=== PATIENT | female | born 1975 | race Caucasian/White ===

== ENCOUNTER 2017-03-31 09:41 | Inpatient (IN) | payer OTHER ==
[2017-03-30 10:37] LABS: BASOPHILS % 0.4 % (0.0-2.0); HEMATOCRIT 38.6 % (37.0-47.0); HEMOGLOBIN 12.5 g/dl (12.0-16.0); LYMPHOCYTES # 2.3 10^3/ul (0.8-2.9); MEAN CORPUSCULAR HEMOGLOBIN 28.3 pg (29.0-33.0); MEAN CORPUSCULAR HGB CONC 32.4 g/dl (32.0-37.0); MEAN CORPUSCULAR VOLUME 87.5 fl (82.0-101.0); MEAN PLATELET VOLUME 8.7 fl (7.4-10.4); MONOCYTE # 0.3 10^3/ul (0.3-0.9); MONOCYTES % 5.9 % (0.0-11.0); NEUTROPHIL # 2.8 10^3/ul (1.6-7.5); NEUTROPHILS % 50.5 % (39.0-77.0); PLATELET COUNT 254 10^3/UL (140-415); RED BLOOD COUNT 4.41 10^6/ul (4.20-5.40); RED CELL DISTRIBUTION WIDTH 14.2 % (11.5-14.5); WHITE BLOOD COUNT 5.4 10^3/ul (4.8-10.8)
[2017-03-30 10:49] LABS: ADD UMIC YES; UR ASCORBIC ACID NEGATIVE (NEGATIVE); UR BACTERIA FEW /HPF (NONE SEEN); UR BILIRUBIN (Dip) NEGATIVE (NEGATIVE); UR BLOOD (Dip) 1+ mg/dL (NEGATIVE); UR CLARITY CLEAR (CLEAR); UR COLOR STRAW (YELLOW); UR GLUCOSE (Dip) NEGATIVE (NEGATIVE); UR KETONES (Dip) NEGATIVE (NEGATIVE); UR LEUKOCYTE ESTERASE (Dip) 1+ Leu/ul (NEGATIVE); UR NITRITE (Dip) NEGATIVE (NEGATIVE); UR RBC 2 /HPF (0-5); UR SPECIFIC GRAVITY (Dip) 1.003 (1.003-1.030); UR TOTAL PROTEIN (Dip) NEGATIVE (NEGATIVE); UR UROBILINOGEN (Dip) NEGATIVE (NEGATIVE)
[2017-03-30 10:59] LABS: INR 1.11; PROTIME 14.3 Sec (12.2-14.2); PT RATIO 1.1
[2017-03-30 11:00] LABS: PARTIAL THROMBOPLASTIN TIME 33.1 Sec (25.0-35.0)
[2017-03-30 11:02] LABS: ALBUMIN 4.1 g/dl (3.3-4.9); ALBUMIN/GLOBULIN RATIO 1.02; BILIRUBIN,INDIRECT 0.2 mg/dl (0-1.1); BILIRUBIN,TOTAL 0.2 mg/dl (0.2-1.3); CALCIUM 9.4 mg/dl (8.4-10.2); CREATININE 0.87 mg/dl (0.44-1.00); POTASSIUM 4.1 mmol/L (3.5-5.1); TOTAL PROTEIN 8.1 g/dl (6.1-8.1)
[2017-03-30 12:13] LABS: CANCER ANTIGEN 125 52.4 U/ml (0.0-35.0)
[2017-03-31] VITALS (20 sets, daily range): BP systolic 122–147; BP diastolic 62–93; PULSE 60–82; RESP 15–20; Ht 157.5 cm; Wt 70.1 kg
[~2017-03-31] VITALS: Ht 157.5 cm; Wt 70.1 kg
[~2017-03-31 09:41] MED LIST: CEFAZOLIN 1 GM INJ ONE; metroNIDAZOLE 500 MG/100 ML NS IVPB ONE
[2017-03-31] MEDS ORDERED: OLAN10TA7 PO (10:42)
[2017-03-31] MEDS ORDERED: MIDAZOLAM 1 MG/ML 2 ML INJ ONE (12:28)
[2017-03-31] MEDS ORDERED: morphine SULFATE/PF (10 MG/10 ML) INJ ONE (12:31)
[2017-03-31] MEDS ORDERED: PROPOFOL 20 ML ONE (13:38)
[2017-03-31] MEDS ORDERED: ROCURONIUM 50 MG INJ ONE ×2 (13:38→13:48)
[2017-03-31] MEDS ORDERED: SUCCINYLCHOLINE CHLORIDE 100 MG/5 ML SYG IV ONE (13:38)
[2017-03-31] MEDS ORDERED: LIDOCAINE 2% (SDV) 5 ML INJ ONE (13:38)
[2017-03-31] MEDS ORDERED: ONDANSETRON 4 MG INJ ONE (13:50)
[2017-03-31] MEDS ORDERED: FAMOTIDINE 20 MG INJ ONE (13:50)
[2017-03-31] MEDS ORDERED: DEXAMETHASONE 4 MG/ML 1 ML INJ ONE (13:50)
[2017-03-31] MEDS ORDERED: THROMBIN 5000 UNIT VIAL ONE (13:59)
[2017-03-31] MEDS ORDERED: METHYLENE BLUE 1% 10 ML INJ ONE (14:04)
[2017-03-31] MEDS ORDERED: VASOPRESSIN 20 UNITS INJ ONE (14:12)
[2017-03-31] MEDS ORDERED: SUGAMMADEX SODIUM 200 MG/2 ML VIAL IV ONE ×2 (16:25)
[2017-03-31] MEDS ORDERED: HYDROmorphONE (0.2 MG/ML) 10ML SYG IV PRN (17:00)
[2017-03-31] MEDS ORDERED: HYDROmorphONE 0.5 MG/0.5 ML SYG IV PRN ×2 (17:00)
[2017-03-31] MEDS ORDERED: NALOXONE (0.4 MG/ML) INJ IV PRN (17:00)
[2017-03-31] MEDS ORDERED: ONDANSETRON 4 MG INJ IV PRN ×3 (17:00→17:30)
[2017-03-31] MEDS ORDERED: PROCHLORPERAZINE 10 MG INJ IV PRN (17:00)
[2017-03-31] MEDS ORDERED: MEPERIDINE 25 MG INJ IV PRN (17:00)
[2017-03-31] MEDS ORDERED: NALBUPHINE HCL (10 MG/1 ML) INJ IV PRN (17:00)
[2017-03-31] MEDS ORDERED: FENTAnyl 50 MCG/ML VIAL IV PRN (17:00)
[2017-03-31] MEDS ORDERED: DIPHENHYDRAMINE 50 MG INJ IV PRN ×3 (17:00→17:30)
--- NOTE | 2017-03-31 17:15 | HPN ---
Date/Time of Note Date/Time of Note DATE: 03/31/17 TIME: 17:15 Interval H&P Admission Note Pt. seen H&P reviewed: No system changes FLAKO CHOW MD Mar 31, 2017 17:15
--- NOTE | 2017-03-31 17:18 | SIPON ---
Date/Time of Note Date/Time of Note DATE: 03/31/17 TIME: 17:15 Operative Report Preoperative Diagnosis pain and menorrhagia Postoperative Diagnosis severe endometriosis, ureteral stricture, fibroids, adhesions Operation/Procedure Performed LSG/BSO/UD x 2, enterolysis Surgeon see signature line veterinary assistant technician see dict Anesthesia: other Estimated blood loss: 50 - 100 ml's Transfusion Required none Specimen multiple Grafts/Implants none Complications none FLAKO CHOW MD Mar 31, 2017 17:18
[2017-03-31] MEDS ORDERED: METOCLOPRAMIDE 10 MG INJ IV PRN (17:30)
[2017-03-31] MEDS ORDERED: morphine 2 MG INJ IV PRN (17:30)
[2017-03-31] MEDS ORDERED: metroNIDAZOLE 500 MG/NS (PMX) 100 ML IVPB SCH (17:30)
[2017-03-31] MEDS ORDERED: CEFAZOLIN 1 GM in SOD CHLORIDE 0.9% 100 ML IVPB SCH (17:30)
[2017-03-31 17:58] LABS: BASOPHILS % 0.1 % (0.0-2.0); HEMOGLOBIN 12.3 g/dl (12.0-16.0); LYMPHOCYTES # 1.1 10^3/ul (0.8-2.9); LYMPHOCYTES % 8.5 % (15.0-51.0); MEAN CORPUSCULAR HEMOGLOBIN 28.7 pg (29.0-33.0); MEAN CORPUSCULAR HGB CONC 32.4 g/dl (32.0-37.0); MEAN CORPUSCULAR VOLUME 88.6 fl (82.0-101.0); MONOCYTE # 0.2 10^3/ul (0.3-0.9); MONOCYTES % 1.9 % (0.0-11.0); NEUTROPHIL # 11.2 10^3/ul (1.6-7.5); NEUTROPHILS % 89.2 % (39.0-77.0); PLATELET COUNT 232 10^3/UL (140-415); RED BLOOD COUNT 4.29 10^6/ul (4.20-5.40); RED CELL DISTRIBUTION WIDTH 14.2 % (11.5-14.5); WHITE BLOOD COUNT 12.5 10^3/ul (4.8-10.8)
[2017-03-31 18:21] LABS: ALBUMIN 3.8 g/dl (3.3-4.9); ALBUMIN/GLOBULIN RATIO 1.22; BILIRUBIN,INDIRECT 0.1 mg/dl (0-1.1); BILIRUBIN,TOTAL 0.1 mg/dl (0.2-1.3); CALCIUM 8.7 mg/dl (8.4-10.2); CREATININE 0.78 mg/dl (0.44-1.00); POTASSIUM 3.6 mmol/L (3.5-5.1); TOTAL PROTEIN 6.9 g/dl (6.1-8.1)
[2017-03-31 18:29] LABS: HOLD TRANSMISSIONS 1
[2017-03-31] MEDS: OLANZAPINE 5 MG TAB PO SCH (21:00)
[2017-03-31] MEDS: CEFAZOLIN 1 GM/50 ML (PMX) 50 ML IVPB SCH (21:38)
[2017-03-31] MEDS: POTASSIUM CHLORIDE 20 MEQ in LACTATED RINGER'S 1,000 ML IV SCH (21:41)
[2017-03-31] MEDS: FAMOTIDINE 20 MG INJ IV SCH (22:39)
[2017-03-31] MEDS: metroNIDAZOLE 500 MG/NS (PMX) 100 ML IVPB SCH (22:40)
[2017-04-01 00:21] VITALS: BP 117/65; RESP 18
[2017-04-01] MEDS: POTASSIUM CHLORIDE 20 MEQ in LACTATED RINGER'S 1,000 ML IV SCH ×2 (03:31→11:41)
--- NOTE | 2017-04-01 04:53 | HP ---
DATE OF ADMISSION: 03/31/2017 CHIEF COMPLAINT AND HISTORY OF PRESENT ILLNESS: The patient is a 41-year-old female with learning d isability and schizophrenia. The patient is on Zyprexa at home. Patient was seen by Dr. Sweetie dobbins an outpatient for gradually increasing pelvic mass. Mass was noted to be complex and CA-125 was 3 9. The patient also has history of menorrhagia, in addition to pelvic pain. The patient was david t into the hospital today and underwent laparoscopic supracervical hysterectomy, bilateral salpingo- oophorectomy, ureteral dissection. The patient is being admitted for further evaluation and managem ent. The patient denies any chest pain or shortness of breath. No reported recent vomiting. No re ported resting leg pain. No reported numbness or tingling in any extremity. The patient denies any headache. Other than postoperative pain, rest of the review of systems were unremarkable. PAST MEDICAL HISTORY: The patient has history of learning disability and schizophrenia. PAST SURGICAL HISTORY: Patient is status post brain surgery, details not available. SOCIAL HISTORY: No smoking, no alcohol. FAMILY HISTORY: Brother and mother have diabetes. MEDICATIONS PRIOR TO ADMISSION: Zyprexa. PHYSICAL EXAMINATION: GENERAL: The patient to be conscious, awake, alert, follows simple commands. VITAL SIGNS: Temperature 97.5, pulse 60, respirations 16, blood pressure 146/77, O2 saturation 100% on room air. HEENT: Atraumatic, normocephalic. Conjunctivae and lids normal. Nose and ears normal. Oropharynx clear. NECK: No mass. CHEST: Fairly clear. CARDIOVASCULAR: S1, S2 normal. No murmur. ABDOMEN: The patient is status post laparoscopic surgery. EXTREMITIES: No edema. Pedal pulses palpable. SKIN: Without rash. NEUROLOGIC: The patient is awake, alert, follows simple commands. LABORATORY DATA: WBC 12.5, hemoglobin 12.3, platelets 232. Sodium 141, potassium 3.6, BUN 7, creat inine 0.7. Liver enzymes normal. CA-125 done yesterday was 52. IMPRESSION: 1. Pelvic pain and menorrhagia with a pelvic mass, status post laparoscopic supracervical hysterect [place], bilateral salpingo-oophorectomy, ureteral dissection. Postoperative diagnosis is severe endome triosis with ureteral stricture, uterine fibroids and adhesions. 2. Cognitive developmental delay with possible history of schizophrenia. PLAN: Patient admitted on medical floor. Patient will be started on IV fluids, IV Ancef and IV Fla gyl as per protocol. For pain control, the patient will be given IV Dilaudid. For nausea, she will be started on IV Zofran p.r.n. basis. For DVT prophylaxis, patient will be put on SCD prophylaxis and for GI prophylaxis, the patient will be started on IV Pepcid. We will resume Zyprexa as at home . Plan of care discussed with patient's sister. Further recommendations will depend on patient's h ospital course and recommendations from Dr. Chow. We will continue to follow her. Dictated By: NGUYỄN MEJIA MD AB/NTS Conf#: [id number] DID#: [id number] CC: FLAKO CHOW MD;*EndCC*
[2017-04-01] MEDS: CEFAZOLIN 1 GM/50 ML (PMX) 50 ML IVPB SCH ×2 (04:57→11:41)
[2017-04-01 05:10] VITALS: BP 112/64; PULSE 76; RESP 20
[2017-04-01 05:17] LABS: BASOPHILS % 0.1 % (0.0-2.0); HEMATOCRIT 34.4 % (37.0-47.0); HEMOGLOBIN 11.4 g/dl (12.0-16.0); LYMPHOCYTES # 1.7 10^3/ul (0.8-2.9); LYMPHOCYTES % 19.5 % (15.0-51.0); MEAN CORPUSCULAR HEMOGLOBIN 28.8 pg (29.0-33.0); MEAN CORPUSCULAR HGB CONC 33.1 g/dl (32.0-37.0); MEAN CORPUSCULAR VOLUME 86.9 fl (82.0-101.0); MEAN PLATELET VOLUME 9.1 fl (7.4-10.4); MONOCYTE # 0.6 10^3/ul (0.3-0.9); NEUTROPHIL # 6.5 10^3/ul (1.6-7.5); NEUTROPHILS % 73.2 % (39.0-77.0); PLATELET COUNT 239 10^3/UL (140-415); RED BLOOD COUNT 3.96 10^6/ul (4.20-5.40); RED CELL DISTRIBUTION WIDTH 14.1 % (11.5-14.5); WHITE BLOOD COUNT 8.9 10^3/ul (4.8-10.8)
[2017-04-01] MEDS: metroNIDAZOLE 500 MG/NS (PMX) 100 ML IVPB SCH ×2 (05:40→15:03)
[2017-04-01 05:46] LABS: ALBUMIN 3.3 g/dl (3.3-4.9); ALBUMIN/GLOBULIN RATIO 1.1; BILIRUBIN,INDIRECT 0.3 mg/dl (0-1.1); BILIRUBIN,TOTAL 0.3 mg/dl (0.2-1.3); CALCIUM 8.7 mg/dl (8.4-10.2); CREATININE 0.85 mg/dl (0.44-1.00); POTASSIUM 3.7 mmol/L (3.5-5.1); TOTAL PROTEIN 6.3 g/dl (6.1-8.1)
[2017-04-01] MEDS: FAMOTIDINE 20 MG INJ IV SCH ×2 (08:49→20:17)
[2017-04-01 09:01] VITALS: BP 115/67; RESP 20
--- NOTE | 2017-04-01 09:25 | PN ---
Date/Time of Note Date/Time of Note DATE: 04/01/17 TIME: 09:24 Assessment/Plan VTE Prophylaxis VTE Prophylaxis Intervention: SCD's Lines/Catheters IV Catheter Type (from Nrs): Peripheral IV Urinary Cath still in place: Yes Reason Cath still needed: urinary retention Assessment/Plan Chief Complaint/Hosp Course Patient's pain is well controlled, good output Via [place] catheter, denies nausea vomiting. Problems: Assessment/Plan - Pelvic pain and menorrhagia with a pelvic mass, status post laparoscopic supracervical hysterectomy, bilateral salpingo-oophorectomy, ureteral dissection by Dr Pitt. Postoperative diagnosis is severe endometriosis with ureteral stricture, uterine fibroids and adhesions. - Cognitive developmental delay with possible history of schizophrenia. Further recommendations based on clinical course. Plan of care discussed with Dr. James. Exam/Review of Systems Vital Signs Vitals Vital Signs Date Time Temp Pulse Resp B/P Pulse Ox O2 Delivery O2 Flow Rate FiO2 04/01/17 09:01 98.2 75 20 115/67 95 04/01/17 05:10 Room Air Intake and Output 03/31/17 03/31/17 04/01/17 14:59 22:59 06:59 Intake Total 3050 ml 950 ml Output Total 1200 ml 2100 ml Balance 1850 ml -1150 ml Exam Constitutional: alert, oriented Head: normocephalic Neck: supple Respiratory: normal air movement Cardiovascular: nl pulses Gastrointestinal: non-tender, soft Genitourinary - Female: other (s/p surgery) Musculoskeletal: nl extremities to inspection Extremities: normal pulses Neurological: nl mental status Results Result Diagram: 04/01/17 0452 04/01/17 0452 Results 24 hrs Laboratory Tests Test 03/31/17 17:51 04/01/17 04:52 04/01/17 05:37 White Blood Count 12.5 #H 8.9 # Red Blood Count 4.29 3.96 L Hemoglobin 12.3 11.4 L Hematocrit 38.0 34.4 L Mean Corpuscular Volume 88.6 86.9 Mean Corpuscular Hemoglobin 28.7 L 28.8 L Mean Corpuscular Hemoglobin Concent 32.4 33.1 Red Cell Distribution Width 14.2 14.1 Platelet Count 232 239 Mean Platelet Volume 9.0 9.1 Neutrophils % 89.2 H 73.2 Lymphocytes % 8.5 L 19.5 Monocytes % 1.9 7.0 Eosinophils % 0.0 0.0 Basophils % 0.1 0.1 Nucleated Red Blood Cells % 0.0 0.0 Neutrophils # 11.2 H 6.5 Lymphocytes # 1.1 1.7 Monocytes # 0.2 L 0.6 Eosinophils # 0.0 0.0 Basophils # 0.0 0.0 Nucleated Red Blood Cells # 0.0 0.0 CBC Results Faxed/Phoned 1 *H Sodium Level 141 141 Potassium Level 3.6 3.7 Chloride Level 107 109 Carbon Dioxide Level 25 24 Anion Gap 13 12 Blood Urea Nitrogen 7 7 Creatinine 0.78 0.85 Glucose Level 164 97 # Calcium Level 8.7 8.7 Total Bilirubin 0.1 L 0.3 Direct Bilirubin 0.00 0.00 Indirect Bilirubin 0.1 0.3 Aspartate Amino Transf (AST/SGOT) 19 21 Alanine Aminotransferase (ALT/SGPT) 24 22 Alkaline Phosphatase 52 43 Total Protein 6.9 # 6.3 Albumin 3.8 3.3 Globulin 3.10 3.00 Albumin/Globulin Ratio 1.22 1.10 Lab Scanned Report LAB Medications Medications Current Medications Acetaminophen/ Hydrocodone Bitart ([place] (5/325)) 1 tab Q6H PRN PO PAIN LEVEL 6 -10; Start 03/31/17 at 17:30 Diphenhydramine HCl (Benadryl) 25 mg Q6H PRN IV ITCHING; Start 03/31/17 at 17: 30 Metoclopramide HCl (Reglan) 10 mg Q6H PRN IV NAUSEA AND/OR VOMITING; Start at 17:30 Ondansetron HCl (Zofran Inj) 4 mg Q6H PRN IV NAUSEA AND/OR VOMITING; Start at 17:30 Famotidine 20 mg 20 mg Q12 IV Last administered on 04/01/17 08:49; Admin Dose 20 MG; Start 03/31/17 at 21:00 Potassium Chloride 20 meq/ Lactated Ringer's 1,010 ml @ 100 mls/hr Q10H6M IV Last administered on 03/31/17 21:41; Admin Dose 100 MLS/HR; Start 03/31/17 at 17:25 Cefazolin Sodium 50 ml @ 100 mls/hr Q8H IVPB Last administered on 04/01/17 04:57; Admin Dose 100 MLS/HR; Start 03/31/17 at 18:30; Stop 04/01/17 at 10:59 Metronidazole (Flagyl 500 Mg (Pmx)) 100 ml @ 100 mls/hr Q8 IVPB Last administered on 04/01/17 05:40; Admin Dose 100 MLS/HR; Start 03/31/17 at 22: 00; Stop 04/01/17 at 14:59 Olanzapine (Zyprexa) 10 mg QHS PO ; Start 03/31/17 at 21:00 YA SNYDER Apr 01, 2017 09:25
[2017-04-01 16:37] VITALS: BP 127/81; PULSE 73; RESP 20
[2017-04-01 19:40] VITALS: BP 121/73; RESP 18
[2017-04-01] MEDS: OLANZAPINE 5 MG TAB PO SCH (21:03)
--- NOTE | 2017-04-01 21:20 | PN ---
Date/Time of Note Date/Time of Note DATE: 04/01/17 TIME: 21:17 Assessment/Plan VTE Prophylaxis VTE Prophylaxis Intervention: SCD's Lines/Catheters IV Catheter Type (from Nrsg): Peripheral IV Urinary Cath still in place: Yes Reason Cath still needed: urinary retention Assessment/Plan Assessment/Plan A- discuss with nurse and fam later P- adv diet and blader train Subjective 24 Hr Interval Summary Free Text/Dictation Rested and quiet earlier Exam/Review of Systems Vital Signs Vitals Vital Signs Date Time Temp Pulse Resp B/P Pulse Ox O2 Delivery O2 Flow Rate FiO2 04/01/17 19:40 98.0 81 18 121/73 98 04/01/17 16:37 Room Air Intake and Output 03/31/17 03/31/17 04/01/17 15:00 23:00 07:00 Intake Total 3050 ml 950 ml Output Total 1200 ml 2100 ml Balance 1850 ml -1150 ml Exam Resp- clear CVS- NSR Abd- NT Ext- NT Results Result Diagram: 04/01/17 0452 04/01/17 0452 Results 24 hrs Laboratory Tests Test 04/01/17 04:52 04/01/17 05:37 White Blood Count 8.9 # Red Blood Count 3.96 L Hemoglobin 11.4 L Hematocrit 34.4 L Mean Corpuscular Volume 86.9 Mean Corpuscular Hemoglobin 28.8 L Mean Corpuscular Hemoglobin Concent 33.1 Red Cell Distribution Width 14.1 Platelet Count 239 Mean Platelet Volume 9.1 Neutrophils % 73.2 Lymphocytes % 19.5 Monocytes % 7.0 Eosinophils % 0.0 Basophils % 0.1 Nucleated Red Blood Cells % 0.0 Neutrophils # 6.5 Lymphocytes # 1.7 Monocytes # 0.6 Eosinophils # 0.0 Basophils # 0.0 Nucleated Red Blood Cells # 0.0 Sodium Level 141 Potassium Level 3.7 Chloride Level 109 Carbon Dioxide Level 24 Anion Gap 12 Blood Urea Nitrogen 7 Creatinine 0.85 Glucose Level 97 # Calcium Level 8.7 Total Bilirubin 0.3 Direct Bilirubin 0.00 Indirect Bilirubin 0.3 Aspartate Amino Transf (AST/SGOT) 21 Alanine Aminotransferase (ALT/SGPT) 22 Alkaline Phosphatase 43 Total Protein 6.3 Albumin 3.3 Globulin 3.00 Albumin/Globulin Ratio 1.10 Lab Scanned Report LAB Medications Medications Current Medications Acetaminophen/ Hydrocodone Bitart ([place] (5/325)) 1 tab Q6H PRN PO PAIN LEVEL 6 -10; Start 03/31/17 at 17:30 Diphenhydramine HCl (Benadryl) 25 mg Q6H PRN IV ITCHING; Start 03/31/17 at 17: 30 Metoclopramide HCl (Reglan) 10 mg Q6H PRN IV NAUSEA AND/OR VOMITING; Start at 17:30 Ondansetron HCl (Zofran Inj) 4 mg Q6H PRN IV NAUSEA AND/OR VOMITING; Start at 17:30 Famotidine 20 mg 20 mg Q12 IV Last administered on 04/01/17 20:17; Admin Dose 20 MG; Start 03/31/17 at 21:00 Potassium Chloride/Lactated Ringer's (KCl/Lr) 1,010 ml @ 100 mls/hr Q10H6M IV Last administered on 04/01/17 11:41; Admin Dose 100 MLS/HR; Start 03/31/17 at 17:25 Olanzapine (Zyprexa) 10 mg QHS PO Last administered on 04/01/17 21:03; Admin Dose 10 MG; Start 03/31/17 at 21:00 FLAKO CHOW MD Apr 01, 2017 21:20
[2017-04-02] MEDS: POTASSIUM CHLORIDE 20 MEQ in LACTATED RINGER'S 1,000 ML IV SCH (00:23)
[2017-04-02 02:17] VITALS: BP 127/73; RESP 18
[2017-04-02 05:34] LABS: BASOPHILS % 0.2 % (0.0-2.0); HEMATOCRIT 35.3 % (37.0-47.0); HEMOGLOBIN 11.5 g/dl (12.0-16.0); LYMPHOCYTES # 1.8 10^3/ul (0.8-2.9); LYMPHOCYTES % 27.5 % (15.0-51.0); MEAN CORPUSCULAR HEMOGLOBIN 28.5 pg (29.0-33.0); MEAN CORPUSCULAR HGB CONC 32.6 g/dl (32.0-37.0); MEAN CORPUSCULAR VOLUME 87.6 fl (82.0-101.0); MEAN PLATELET VOLUME 9.2 fl (7.4-10.4); MONOCYTE # 0.5 10^3/ul (0.3-0.9); MONOCYTES % 7.1 % (0.0-11.0); NEUTROPHIL # 4.2 10^3/ul (1.6-7.5); NEUTROPHILS % 64.9 % (39.0-77.0); PLATELET COUNT 226 10^3/UL (140-415); RED BLOOD COUNT 4.03 10^6/ul (4.20-5.40); RED CELL DISTRIBUTION WIDTH 14.3 % (11.5-14.5); WHITE BLOOD COUNT 6.5 10^3/ul (4.8-10.8)
[2017-04-02 06:07] LABS: CALCIUM 8.7 mg/dl (8.4-10.2); CREATININE 0.83 mg/dl (0.44-1.00); POTASSIUM 3.4 mmol/L (3.5-5.1)
[2017-04-02] MEDS: FAMOTIDINE 20 MG INJ IV SCH ×2 (08:20→20:51)
[2017-04-02 08:35] VITALS: BP 138/86; PULSE 77; RESP 20
[2017-04-02] MEDS: HYDROCODONE/APAP (5/325) TAB PO PRN ×2 (09:36→20:51)
[2017-04-02 14:00] VITALS: BP 121/82; RESP 18
--- NOTE | 2017-04-02 15:00 | PN ---
Date/Time of Note Date/Time of Note DATE: 04/02/17 TIME: 14:57 Assessment/Plan VTE Prophylaxis VTE Prophylaxis Intervention: SCD's, other Lines/Catheters IV Catheter Type (from Nrsg): Peripheral IV Urinary Cath still in place: No Assessment/Plan Assessment/Plan A- improved P- reiterated description of the procedure and with mibilization may have flatus and adv diet and possibly diet a.m. Subjective 24 Hr Interval Summary Free Text/Dictation Awaits flaitus but feels near it and maria g diet. Exam/Review of Systems Vital Signs Vitals Vital Signs Date Time Temp Pulse Resp B/P Pulse Ox O2 Delivery O2 Flow Rate FiO2 04/02/17 14:00 98.1 70 18 121/82 98 04/02/17 08:35 Room Air Intake and Output 04/01/17 04/01/17 04/02/17 15:00 23:00 07:00 Intake Total 410 ml 1100 ml 930 ml Output Total 1800 ml 2100 ml Balance 410 ml -700 ml -1170 ml Exam Resp- clear CVS- NSR Abd- NT clear Ext- NT Results Result Diagram: 04/02/177 04/02/17446 Results 24 hrs Laboratory Tests Test 04/02/17 04:47 White Blood Count 6.5 # Red Blood Count 4.03 L Hemoglobin 11.5 L Hematocrit 35.3 L Mean Corpuscular Volume 87.6 Mean Corpuscular Hemoglobin 28.5 L Mean Corpuscular Hemoglobin Concent 32.6 Red Cell Distribution Width 14.3 Platelet Count 226 Mean Platelet Volume 9.2 Neutrophils % 64.9 Lymphocytes % 27.5 Monocytes % 7.1 Eosinophils % 0.0 Basophils % 0.2 Nucleated Red Blood Cells % 0.0 Neutrophils # 4.2 Lymphocytes # 1.8 Monocytes # 0.5 Eosinophils # 0.0 Basophils # 0.0 Nucleated Red Blood Cells # 0.0 Sodium Level 144 Potassium Level 3.4 L Chloride Level 109 Carbon Dioxide Level 25 Anion Gap 13 Blood Urea Nitrogen 6 L Creatinine 0.83 Glucose Level 102 Calcium Level 8.7 Medications Medications Current Medications Acetaminophen/ Hydrocodone Bitart ([place] (5/325)) 1 tab Q6H PRN PO PAIN LEVEL 6 -10 Last administered on 04/02/17t 09:36; Admin Dose 1 TAB; Start 03/31/17 at 17:30 Diphenhydramine HCl (Benadryl) 25 mg Q6H PRN IV ITCHING; Start 03/31/17 at 17: 30 Metoclopramide HCl (Reglan) 10 mg Q6H PRN IV NAUSEA AND/OR VOMITING; Start at 17:30 Ondansetron HCl (Zofran Inj) 4 mg Q6H PRN IV NAUSEA AND/OR VOMITING; Start at 17:30 Famotidine 20 mg 20 mg Q12 IV Last administered on 04/02/17 08:20; Admin Dose 20 MG; Start 03/31/17 at 21:00 Potassium Chloride/Lactated Ringer's (KCl/Lr) 1,010 ml @ 60 mls/hr [id number] IV Last administered on 04/02/17 00:23; Admin Dose 60 MLS/HR; Start 03/31/17 at 17:25 Olanzapine (Zyprexa) 10 mg QHS PO Last administered on 04/01/17 21:03; Admin Dose 10 MG; Start 03/31/17 at 21:00 FLAKO CHOW MD Apr 02, 2017 15:00
--- NOTE | 2017-04-02 16:05 | PN ---
Date/Time of Note Date/Time of Note DATE: 04/02/17 TIME: 16:02 Assessment/Plan VTE Prophylaxis VTE Prophylaxis Intervention: SCD's Lines/Catheters IV [facility]ter Type [facility]from [facility] Peripheral IV Urinary Cath still in place: No Assessment/Plan Chief Complaint/Hosp Course Patient pain is well controlled, [place] catheter DC patient is able to void, negative flatus. Diet advanced by surgery. possible discharge tomorrow. Assessment/Plan - Pelvic pain and menorrhagia with a pelvic mass, status post laparoscopic supracervical hysterectomy, bilateral salpingo-oophorectomy, ureteral dissection by Dr Pitt. Postoperative diagnosis is severe endometriosis with ureteral stricture, uterine fibroids and adhesions. - Cognitive developmental delay with possible history of schizophrenia. Further recommendations based on clinical course. Plan of care discussed with Dr. James. Problems: Exam/Review of Systems Vital Signs Vitals Vital Signs Date Time Temp Pulse Resp B/P Pulse Ox O2 Delivery O2 Flow Rate FiO2 04/02/17 14:00 98.1 70 18 121/82 98 04/02/17 08:35 Room Air Intake and Output 04/01/17 04/01/17 04/02/17 15:00 23:00 07:00 Intake Total 410 ml 1100 ml 930 ml Output Total 1800 ml 2100 ml Balance 410 ml -700 ml -1170 ml Exam Constitutional: alert, oriented Respiratory: normal air movement Cardiovascular: nl pulses Gastrointestinal: non-tender, soft Genitourinary - Female: other (s/p surgery) Results Result Diagram: 04/02/17 0447 04/02/17 0447 Results 24 hrs Laboratory Tests Test 04/02/17 04:47 White Blood Count 6.5 # Red Blood Count 4.03 L Hemoglobin 11.5 L Hematocrit 35.3 L Mean Corpuscular Volume 87.6 Mean Corpuscular Hemoglobin 28.5 L Mean Corpuscular Hemoglobin Concent 32.6 Red Cell Distribution Width 14.3 Platelet Count 226 Mean Platelet Volume 9.2 Neutrophils % 64.9 Lymphocytes % 27.5 Monocytes % 7.1 Eosinophils % 0.0 Basophils % 0.2 Nucleated Red Blood Cells % 0.0 Neutrophils # 4.2 Lymphocytes # 1.8 Monocytes # 0.5 Eosinophils # 0.0 Basophils # 0.0 Nucleated Red Blood Cells # 0.0 Sodium Level 144 Potassium Level 3.4 L Chloride Level 109 Carbon Dioxide Level 25 Anion Gap 13 Blood Urea Nitrogen 6 L Creatinine 0.83 Glucose Level 102 Calcium Level 8.7 Medications Medications Current Medications Acetaminophen/ Hydrocodone Bitart ([place] (5/325)) 1 tab Q6H PRN PO PAIN LEVEL 6 -10 Last administered on 04/02/17 09:36; Admin Dose 1 TAB; Start 03/31/17 at 17:30 Diphenhydramine HCl (Benadryl) 25 mg Q6H PRN IV ITCHING; Start 03/31/17 at 17: 30 Metoclopramide HCl (Reglan) 10 mg Q6H PRN IV NAUSEA AND/OR VOMITING; Start at 17:30 Ondansetron HCl (Zofran Inj) 4 mg Q6H PRN IV NAUSEA AND/OR VOMITING; Start at 17:30 Famotidine 20 mg 20 mg Q12 IV Last administered on 04/02/17 08:20; Admin Dose 20 MG; Start 03/31/17 at 21:00 Potassium Chloride/Lactated Ringer's (KCl/Lr) 1,010 ml @ 60 mls/hr [id number] IV Last administered on 04/02/17 00:23; Admin Dose 60 MLS/HR; Start 03/31/17 at 17:25 Olanzapine (Zyprexa) 10 mg QHS PO Last administered on 04/01/17 21:03; Admin Dose 10 MG; Start 03/31/17 at 21:00 YA SNYDER Apr 02, 2017 16:05
[2017-04-02] MEDS ORDERED: POTASSIUM CHLORIDE 20 MEQ POWDER FOR ORAL SOLN PO ONE (16:30)
[2017-04-02 16:45] VITALS: BP 130/86; PULSE 72; RESP 22
[2017-04-02 19:55] VITALS: BP 130/70; PULSE 69; RESP 18
[2017-04-02 20:20] VITALS: BP 134/71; RESP 19
[2017-04-02] MEDS: OLANZAPINE 5 MG TAB PO SCH (20:50)
[2017-04-03 02:37] VITALS: BP 132/68; RESP 18
[2017-04-03 05:24] LABS: BASOPHILS % 0.2 % (0.0-2.0); HEMATOCRIT 34.7 % (37.0-47.0); HEMOGLOBIN 11.4 g/dl (12.0-16.0); LYMPHOCYTES % 44.6 % (15.0-51.0); MEAN CORPUSCULAR HGB CONC 32.9 g/dl (32.0-37.0); MEAN CORPUSCULAR VOLUME 88.3 fl (82.0-101.0); MEAN PLATELET VOLUME 9.4 fl (7.4-10.4); MONOCYTE # 0.5 10^3/ul (0.3-0.9); MONOCYTES % 6.9 % (0.0-11.0); NEUTROPHIL # 3.2 10^3/ul (1.6-7.5); PLATELET COUNT 210 10^3/UL (140-415); RED BLOOD COUNT 3.93 10^6/ul (4.20-5.40); RED CELL DISTRIBUTION WIDTH 14.4 % (11.5-14.5); WHITE BLOOD COUNT 6.6 10^3/ul (4.8-10.8)
[2017-04-03 06:33] LABS: CREATININE 0.82 mg/dl (0.44-1.00); POTASSIUM 3.8 mmol/L (3.5-5.1)
[2017-04-03 08:02] VITALS: BP 135/93; RESP 17
[2017-04-03] MEDS: FAMOTIDINE 20 MG INJ IV SCH (09:29)
--- NOTE | 2017-04-03 14:07 | PDOCDIS ---
Discharge Instructions CONDITION Patient Condition: Stable HOME CARE INSTRUCTIONS: Special Diet: soft diet ACTIVITY: Activity Restrictions: Slowly Increase Activity Rest between Activity Avoid heavy lifting Do not Drive Do not operate Machinery Do not operate Power Tool Avoid Heavy Housework Bathing Restrictions: Sponge Bath FOLLOW UP/APPOINTMENTS Follow-up Plan FU with surgery as recommended. Call 911 or go to the nearest hospital if symptoms get worse. Patient verbalized understanding dc instructions Dw Dr James/ staff RANI LANDRY Apr 03, 2017 14:07
--- NOTE | 2017-04-03 14:14 | DS ---
Date/Time of Note Date/Time of Note DATE: 04/03/17 TIME: 14:12 Discharge Summary Admission/Discharge Info Admit Date/Time Mar 31, 2017 at 09:59 Discharge Date/Time Discharge Diagnosis - Pelvic pain and menorrhagia with a pelvic mass, status post laparoscopic supracervical hysterectomy, bilateral salpingo-oophorectomy, ureteral dissection by Dr Pitt. - - - Postoperative diagnosis is severe endometriosis with ureteral stricture, uterine fibroids and adhesions. - Cognitive developmental delay with possible history of schizophrenia. Further recommendations based on clinical course. Plan of care discussed with Dr. James. Patient Condition: Stable Hospital Course The patient is a 41-year-old female with learning disability and schizophrenia , on Zyprexa at home. Patient was seen by Dr. Pitt as an outpatient for gradually increasing pelvic mass. Mass was noted to be complex and CA-125 was 39. The patient also has history of menorrhagia, in addition to pelvic pain. The patient was admitted sp laparoscopic supracervical hysterectomy, bilateral salpingo-oophorectomy, ureteral dissection for further evaluation and management. Patient is hemodynamically stable, got cleared from surgery ................................................................................ .................................................................... ................................................................................ ................................................ ................................................................................ ................................................ ................................................................................ ................................................ ................................................................................ ................................................ ................................................................................ ................................................ ................................................................................ ................................................ ................................................................................ ................................................ ................................................................................ ................................................ ................................................................................ ................................................ ................................................................................ ................................................ ................................................................................ ................................................ ................................................................................ ................................................ ................................................................................ ................................................ ................................................................................ ................................................ ................................................................................ ................................................ ................................................................................ ................................................ ................................................................................ ................................................ ................................................................................ ................................................ ................................................................................ ................................................ ................................................................................ ................................................ ....................................................................care discussed with Dr. James. Home Meds Reported Medications Olanzapine* (Zyprexa*) 10 Mg Tablet, 10 MG PO QHS, #30 TAB 03/31/17 Follow-up Plan FU with surgery as recommended. Call 911 or go to the nearest hospital if symptoms get worse. Patient verbalized understanding dc instructions Dw Dr James/ staff Primary Care Provider Time spent on discharge: < 30 minutes Pending Labs Laboratory Tests Test 04/03/17 04:50 White Blood Count 6.610^3/ul (4.8-10.8) Red Blood Count 3.9310^6/ul (4.20-5.40) Hemoglobin 11.4g/dl (12.0-16.0) Hematocrit 34.7% (37.0-47.0) Mean Corpuscular Volume 88.3fl (82.0-101.0) Mean Corpuscular Hemoglobin 29.0pg (29.0-33.0) Mean Corpuscular Hemoglobin Concent 32.9g/dl (32.0-37.0) Red Cell Distribution Width 14.4% (11.5-14.5) Platelet Count 71216^3/UL (140-415) Mean Platelet Volume 9.4fl (7.4-10.4) Neutrophils % 48.0% (39.0-77.0) Lymphocytes % 44.6% (15.0-51.0) Monocytes % 6.9% (0.0-11.0) Eosinophils % 0.0% (0.0-7.0) Basophils % 0.2% (0.0-2.0) Nucleated Red Blood Cells % 0.0/100WBC (0.0-0.0) Neutrophils # 3.210^3/ul (1.6-7.5) Lymphocytes # 3.010^3/ul (0.8-2.9) Monocytes # 0.510^3/ul (0.3-0.9) Eosinophils # 0.010^3/ul (0.0-0.5) Basophils # 0.010^3/ul (0.0-0.1) Nucleated Red Blood Cells # 0.010^3/ul (0.0-0.0) Sodium Level 145mmol/L (135-144) Potassium Level 3.8mmol/L (3.5-5.1) Chloride Level 109mmol/L (97-110) Carbon Dioxide Level 25mmol/L (21-31) Anion Gap 15 (8-16) Blood Urea Nitrogen 8mg/dl (7-20) Creatinine 0.82mg/dl (0.44-1.00) Glucose Level 102mg/dl (70-220) Calcium Level 9.0mg/dl (8.4-10.2) RANI LANDRY Apr 03, 2017 14:14
[2017-04-03 14:35] VITALS: BP 149/84; RESP 17
--- NOTE | 2017-04-03 20:52 | OPR ---
Date/Time of Note Date/Time of Note DATE: 04/03/17 TIME: 20:50 Operative Report Free Text/Dictation OPERATIVE REPORT [facility] Name: Zahra Bailey Medical Date: 03/31/17 Preoperative Diagnosis: 1- Bilateral adnexal masses vs one with pelvic pain and CA-125 of 39 2- Possible uterine enlargement with persistent intermenstrual bleeding Postoperative Diagnosis: 1- Severe endometriosis 2- Bilateral ureteral dissection with repositioning 3- Distorted retroperitoneal blood supply 4- Adhesions Procedures: 1- Laparoscopic subracervical hysterectomy with BSO 2- Bilateral ureteral dissection with repositioning 3-Bilateral retroperitoneal uterine artery ligation 4- Enterolysis Surgeon: Dr. Pitt Yarn Winder: Dr. Brown Anesthesia: General Indications for Procedure: The patient was a 41- year old with pain and a unilateral vs bilateral adnexal masses and a elevated CA-125 of 39 with as well as uterine enlargement with abnormal bleeding and normal sampling preoperatively. Hence a laparoscopy was undertaken with the intention of a laparoscopic hysterectomy and bilateral salpingoophorectomy with staging if needed after considering all options with risks and benefits. Name: Zahra Mendoza Findings and Summary The patient was laparoscoped and noted to have the adnexa densely adherent to the uterus and densely adherent to the sidewalls and have masses and be consistent with severe endometriosis with some fibroids, and therefore required a ureteral dissection and repositioning bilaterally while gaining access to the uterine arteries. While completing the ureteral dissections and gaining access to the uterine arteries anatomic issues and hypervascularity necessitated that the uterine arteries be dissected and clipped laterally, adjacent to the hypogastric arteries bilaterally. The supracervical laparoscopic hysterectomy with bilateral salpingoophorectomy was then completed uneventfully. Procedure: After being prepped and draped in the usual manner standard EEA-sizer and pneumo -occluder were inserted vaginally to define anatomy and assure pneumoperitoneum. A 5-millimeter trocar was then placed suprapubically without incident. Subsequently, we insufflated to 15 mm Hg and placed two 5- millimeter trocars laterally and a 12-millimeter trocar suprapubically. At this time any pelvic adhesions were lysed with sharp dissection. Subsequently we explored and noted pelvic adhesions and endometriosis manifested by adnexa with 3-6 cm cysts densely adherent to the uterus and densely adherent to the sidewalls and the masses and be consistent with severe endometriosis with some fibroids Initially the right round ligament was cauterized and transected with the Thunderbeat and the retroperitoneal spaced opened parallel to the IP ligament an laterally with the same devise including adjacent peritoneum with endometriosis. The ureter were identified and because of some dense adhesions and the right adnexal mass adherent to the sidewall required a specific dissection and repositioning. The ureter was bluntly dissected away from the broad ligament with an Omni, and carefully repositioned lateral to the broad ligament and pathology. Due to vascularity and [facility] as well as the enlarged uterus with lower uterine segment expansion and fibroids, the uterine artery was identified and clipped lateral to the ureter, immediately distal to the branching of the hypogastric and at the bifurcation of the hypogastric; salvaging both observed superior and inferior vesicle while controlling the entire uterine with associated collateral branches. Hence, space was developed in the broad ligament and the IP ligament was transected with a Thunderbeat. At this time the sigmoid was dissected from the sidewall with sharp dissection. The left round ligament was transected with the Gyrus biopolar Cutting Forceps laterally and the retroperitoneal spaced opened parallel to the IP ligament an laterally with the same devise. The ureter was identified and because of similar anatomic issues to the right required but more notable a specific dissection and repositioning. The ureter was bluntly dissected away from the broad ligament bilaterally with an Omni, and carefully repositioned lateral to the broad ligaments and densely adherence with adjacent adnexa and cysts. Similarly, due to vascularity and ongoing oozing as well as the adjacent adherent adnexia and fibroid uterus the uterine artery was identified and clipped lateral to the ureter, immediately distal to the branching of the hypogastric and at the bifurcation of the hypogastric; salvaging both observed superior and inferior vesicle while controlling the entire uterine with associated collateral branches. Subsequently, space was developed in the broad ligament and the IP ligament was transected with a Thunderbeat and Omni. We then used a cork screw manipulator placed through the 12-mm suprapubic trocar to manipulate the uterus allowing development or the bladder flap uneventfully with the Thunderbeat and Gyrus Cutting Forceps as well as Omni and blunt dissection. The right uterine artery was transected with a Thunderbeat perpendicular to the distal lower uterine segment and the Cardinal ligament and utero-sacral ligament were both transected with an Thunderbeat and Omni parallel to the lower uterine segment and cervix. An identical series of steps were taken on the contralateral side. Additional efforts were required to safely develop the cul-de-sac with sharp dissection laterally and Name: Zahra [facility] the integrity of the sigmoid was confirmed with the EEA sizer. The aforementioned masses were removed from the cervix with the Thunderbeat and the remaining cervix was cauterized with the Omni and Thunderbeat to assure hemostasis. Subsequently the adnexa were removed separately with the Thunderbeat and removed in bags thru the enlarged 12-millimeter site to 15- millimeter site and the uterus was then removed in a bag with minimal morcellation, after which the 12-millimeter was reinserted. After irrigating and assuring hemostasis the 12 millimeter trocar was removed and the fascia was closed with 0-vicryl using an endo-close devise. The gas was removed and the skin of all sites then closed with 6-0 Monocryl suture. The EBL was 100cc and the patient tolerated the procedure well and left the OR in good condition. Cortes Pitt M.D. Preoperative Diagnosis as above Postoperative Diagnosis as above Operation/Procedure Performed as above Surgeon see signature line Yarn Winder as above Anesthesia Type: other Estimated Blood Loss: 100 - 150 ml's Transfusion none Specimen mult Grafts/Implants none Tubes/Drains none Complications none Indications na Procedure Description as above CORTES PITT MD Apr 03, 2017 20:52
== END 2017-04-03 15:50 | disposition home or self-care (01) | DRG 743 ==
LOC: OBSVTOIN 09:59 → INTOOBSV 09:59 → REC 09:59 → EDSTATUS 14:00 → MS1 18:10
PROC: 0UT74ZZ Resection of Bilateral Fallopian Tubes, Percutaneous Endoscopic Approach (ICD-10-PCS; 2017-03-31)
PROC: 0UT24ZZ Resection of Bilateral Ovaries, Percutaneous Endoscopic Approach (ICD-10-PCS; 2017-03-31)
PROC: 0TN64ZZ Release Right Ureter, Percutaneous Endoscopic Approach (ICD-10-PCS; 2017-03-31)
PROC: 0UT94ZL Resection of Uterus, Supracervical, Percutaneous Endoscopic Approach (ICD-10-PCS; principal; 2017-03-31 12:00)
DX: D25.1 Intramural leiomyoma of uterus (principal); F20.9 Schizophrenia, unspecified; N80.1 Endometriosis of ovary; N73.6 Female pelvic peritoneal adhesions (postinfective); N92.0 Excessive and frequent menstruation with regular cycle
CPT/HCPCS: 80048; 80053; 81001; 84703; 85025; 85610; 85730; 86304; 86850; 86900; 86901; 86920; 87086; 88104; 88305; 88331; J0690; J1100; J2250; J2274; J2405; J3480; J7120